=== PATIENT | female | born 1970 | race African-American/Black ===

== ENCOUNTER 2025-06-10 05:17 | Emergency (ER) | payer BC ==
[~2025-06-10] VITALS: Ht 165.1 cm; Wt 84.0 kg
[2025-06-10 05:45] VITALS: O2SAT 98
[2025-06-10] MEDS ORDERED: DOXY150T9 PO (06:44)
[2025-06-10] MEDS ORDERED: DOXY100T2 PO (06:45)
[2025-06-10] MEDS: CEFTRIAXONE SODIUM 500MG VIAL IM ONE (06:59)
[2025-06-10] MEDS: DOXYCYCLINE HYCLATE 100MG CAPSULE PO ONE (06:59)
[2025-06-10 07:05] VITALS: BP 120/81; PULSE 76; RESP 18; TEMP 36.8; O2SAT 98
[2025-06-10 08:11] LABS: CREATININE 1.0 mg/dL (0.6-1.0); UREA NITROGEN BLOOD 7 mg/dL (9-23)
[2025-06-10 08:13] LABS: ASPARTATE AMINOTRANSFERASE 19 IU/L (<34); BILIRUBIN DIRECT 0.2 mg/dL (<=3.0); BILIRUBIN TOTAL 0.6 mg/dL (0.1-1.0); PROTEIN TOTAL 7.5 g/dL (6.0-8.3)
== END 2025-06-10 07:10 | disposition home or self-care (01) ==
LOC: ER 05:28
DX: N93.9 Abnormal uterine and vaginal bleeding, unspecified (principal); R10.20 Pelvic and perineal pain unspecified side; Z20.2 Contact with and (suspected) exposure to infections with a predominantly sexual mode of transmission; Z79.890 Hormone replacement therapy; N89.8 Other specified noninflammatory disorders of vagina
CPT/HCPCS: 99285; 87491; 87591; 80076; 80048; 36415; 96372; J0696